=== PATIENT | female | born 1960 | race Caucasian/White ===

== ENCOUNTER 2018-02-04 16:09 | Emergency (ER) | payer BC ==
[2018-02-04 16:15] VITALS: PULSE 90; RESP 18
[2018-02-04] MEDS ORDERED: MORPHINE SULFATE 4MG/4ML SYRG IVP STA ×2 (16:36→17:30)
[2018-02-04] MEDS ORDERED: SODIUM CHLORIDE 0.9% 1,000 ML IV STA (16:36)
[2018-02-04] MEDS ORDERED: ONDANSETRON ODT 4 MG TAB PO STA (16:36)
--- NOTE | 2018-02-04 16:38 | ED ---
General Adult HPI - General Chief complaint: Fall Stated complaint: FALL 5FT BACKWARDS FROM LADDER Time Seen by Provider: 02/04/18 16:25 Source: patient, RN notes reviewed Mode of arrival: wheelchair Limitations: no limitations - History of Present Illness Initial comments: Patient 57-year-old female who was on a ladder approximately 5 feet in the area of most of balance falling backwards landing on her lower back and hips. She states she did not hit her head. Did not lose consciousness. Does admit to pain increased and lower back. States worse with certain movements. Patient denies any radicular pain. Denies any bowel or bladder incontinence retention. Patient denies any other injuries from a fall. States she has good range of motion of her legs but feels pain in the lower back when she moves them. Patient denies any headache. Denies any visual change. nausea due to the pain. Patient denies any other complaints at this time. Denies any neck pain, abdominal pain, chest pain, shortness of breath. - Related Data Home Medications Medication Instructions Recorded Confirmed Estrogens, Conjugated [Premarin] 0.3 mg PO HS 02/04/18 02/04/18 Rosuvastatin Calcium [Crestor] 5 mg PO HS 02/04/18 02/04/18 Previous Rx's Medication Instructions Recorded Hydrocodone/Acetaminophen [[place] 1 each PO Q6HR PRN #20 tab 02/04/18 5-325] Ibuprofen [Motrin] 600 mg PO Q6HR PRN #40 day 02/04/18 Ondansetron Odt [Zofran ODT] 4 mg PO Q8HR PRN #20 tab 02/04/18 Orphenadrine [Norflex] 100 mg PO Q12H #20 tablet.er 02/04/18 Allergies Allergy/AdvReac Type Severity Reaction Status Date / Time erythromycin base Allergy Rash/Hives Verified 02/04/18 16:30 Penicillins Allergy Unknown Verified 02/04/18 16:30 Childhood Review of Systems ROS Statement: Those systems with pertinent positive or pertinent negative responses have been documented in the HPI. ROS Other: All systems not noted in ROS Statement are negative. Past Medical History Past Medical History: Hyperlipidemia History of Any Multi-Drug Resistant Organisms: None Reported Past Surgical History: Tonsillectomy Additional Past Surgical History / Comment(s): Rotator cuff repair Past Psychological History: No Psychological Hx Reported Smoking Status: Never smoker Past Alcohol Use History: None Reported Past Drug Use History: None Reported General Exam - General Exam Comments Initial Comments: General: The patient is awake and alert, in no distress, and does not appear acutely ill. Eye: Pupils are equal, round and reactive to light, extra-ocular movements are intact. No nystagmus. There is normal conjunctiva bilaterally. No signs of icterus. Ears, nose, mouth and throat: There are moist mucous membranes and no oral lesions. Neck: The neck is supple, there is no tenderness or JVD. Cardiovascular: There is a regular rate and rhythm. No murmur, rub or gallop is appreciated. Respiratory: Lungs are clear to auscultation, respirations are non-labored, breath sounds are equal. No wheezes, stridor, rales, or rhonchi. Gastrointestinal: Soft, non-distended, non-tender abdomen without masses or organomegaly noted. There is no rebound or guarding present. No CVA tenderness. Musculoskeletal: Patient has full range motion of the upper extremities. Good range of motion lower extremities no specific bony tenderness on exam. No tenderness to the hips. Negative logroll maneuver. Patient has normal appearance of the cervical, thoracic, lumbar spine. No step-off or deformity. Patientspecific bony tenderness of the spinous processes. Strength 5/5. Sensation intact. Pulses equal bilaterally 2+. Neurological: A&O x 3. CN II-XII intact, There are no obvious motor or sensory deficits. Coordination appears grossly intact. Speech is normal. Skin: Skin is warm and dry and no rashes or lesions are noted. Psychiatric: Cooperative, appropriate mood & affect, normal judgment. Limitations: no limitations Course Vital Signs 02/04/18 16:13 Temperature 98.0 F Pulse Rate 90 Respiratory 18 Rate Blood Pressure 127/70 O2 Sat by Pulse 98 Oximetry Medical Decision Making - Medical Decision Making Case discussed in detail with attending physician Dr. Archibald. Patient reexamined at this time shows no signs of distress resting comfortably. Patient x-rays of the hips bilaterally show no acute fracture dislocation. Patient's x-ray of the lumbar spine does show a chief complaint body fracture L2. CT of the lumbar spine performed and shows acute compression fracture of L3 with approximately 35% loss of height. No significant fragment extending posteriorly. There is a 3 mm posterior position of the posterior superior aspect of L2 vertebral body into the spinal canal. There is developmentally adequate canal and no significant impingement on the thecal sac. The spinal canal is adequate. The facet joints are intact. SI joints are intact. No lumbar paraspinal mass. Small posterior disc bulge at L3-4, L4-5. There is small posterior disc herniation at L2-3 towards the left side. SI joints are intact as read by radiologist Dr. Toribio. Patient has no neural deficit. Patient. Range of motion of upper and lower extremities. Patient advised no bending or heavy lifting. Patient will be given prescription for TSLO back brace. Patient at this time doing well. Will be discharged home with pain medication. Otherwise close follow-up with orthopedics. Advised return if any symptoms increase worsen. Disposition Clinical Impression: Closed fracture of lumbar vertebral body Disposition: HOME SELF-CARE Condition: Good Instructions: Vertebral Compression Fracture (ED) Additional Instructions: Please follow-up with orthopedics over the next 1-2 days. Please use brace when up and moving around. Please do not do any bending or lifting at the waist. Please use pain medication as prescribed. Return to emergency room symptoms increase or worsen or for any other concerns. Prescriptions: Hydrocodone/Acetaminophen [[place] 5-325] 1 each PO Q6HR PRN #20 tab PRN Reason: Pain Ibuprofen [Motrin] 600 mg PO Q6HR PRN #40 day PRN Reason: Pain Ondansetron Odt [Zofran ODT] 4 mg PO Q8HR PRN #20 tab PRN Reason: Nausea Orphenadrine [Norflex] 100 mg PO Q12H #20 tablet.er Referrals: Esau Cortez Jr, DO [Primary Care Provider] - 1-2 days Satish Shaw DO [Doctor of Osteopathic Medicine] - 1-2 days Time of Disposition: 18:50
--- NOTE | 2018-02-04 17:35 | XR ---
EXAMINATION TYPE: XR lumbosacral spine min 4V DATE OF EXAM: 02/04/2018 COMPARISON: NONE HISTORY: Fell from a ladder. Pain. TECHNIQUE: 5 views FINDINGS: There is anterior wedging of L2 vertebral body with depression of the superior endplate of 35%. The posterior elements appear intact. Sacroiliac joints appear normal. IMPRESSION: Compression fracture of L2 appears acute.
--- NOTE | 2018-02-04 18:11 | CT ---
EXAMINATION TYPE: CT lumbar spine wo con DATE OF EXAM: 02/04/2018 5:51 PM COMPARISON: NONE HISTORY: Fall from ladder today, landed on back. CT DLP: 967 mGycm Automated exposure control for dose reduction was used. Unenhanced CT of the lumbar spine was performed. Bone and soft tissue window settings are submitted as well as coronal and sagittal reconstructions. The vertebra have fairly normal alignment. There is anterior wedging of the L2 vertebral body with co rtical buckling anteriorly consistent with an acute fracture. There is 35% loss of height. I see no s ignificant fragment extending posteriorly. There is 3 mm posterior position of the posterior superior aspect of the L2 vertebral body into the spinal canal. There is developmentally adequate canal and n o significant impingement on the thecal sac. The spinal canal is adequate. The facet joints are intac t. The sacroiliac joints are intact. There is no lumbar paraspinal mass. There are small posterior di sc bulges at L3-4 L4-5. There is small posterior disc herniation at L2-3 towards the left side. Sacro iliac joints are intact. IMPRESSION: Acute compression fracture of L2 vertebral body as above with only minimal fragment extension posteri gokul. No spinal stenosis.
--- NOTE | 2018-02-04 18:21 | XR ---
EXAMINATION TYPE: XR Hip Bilateral and AP pelvis DATE OF EXAM: 02/04/2018 COMPARISON: NONE HISTORY: Hip pain after falling TECHNIQUE: 5 views FINDINGS: The pelvic ring is intact. Proximal femurs and hip joints are intact. Hip joint spaces are fairly well-maintained. Sacroiliac joints appear normal. CONCLUSION: No acute abnormality of the pelvis and both hips. No fracture.
[2018-02-04] MEDS ORDERED: KETOROLAC 30 MG/ML 1 ML VIAL IVP STA (18:39)
[2018-02-04] MEDS ORDERED: ORPHENADRINE 30 MG/ML 2 ML VIAL IVP STA (18:39)
[2018-02-04 19:41] VITALS: BP 128/60; TEMP 98.2
== END 2018-02-04 19:41 | disposition home or self-care (01) ==
LOC: EC 16:09
DX: S32.039A Unspecified fracture of third lumbar vertebra, initial encounter for closed fracture (principal); S32.029A Unspecified fracture of second lumbar vertebra, initial encounter for closed fracture; M51.26 Other intervertebral disc displacement, lumbar region; E78.5 Hyperlipidemia, unspecified; Z79.899 Other long term (current) drug therapy; Z88.0 Allergy status to penicillin; Z88.1 Allergy status to other antibiotic agents; W11.XXXA Fall on and from ladder, initial encounter
CPT/HCPCS: 99284; 96374; 96375; 72110; 73521; 72131; J2360; J1885; J2270

== ENCOUNTER → 2018-11-03 | Outpatient (CLI) | payer BC ==
--- NOTE | 2018-11-03 11:24 | BD ---
EXAMINATION TYPE: Axial Bone Density DATE OF EXAM: 11/03/2018 COMPARISON: NONE CLINICAL HISTORY: 58 YR OLD FEMALE....ICD-10 CODE: M89.9 DISORDER OF BONE Height: 63.4 Weight: 131 FRAX RISK QUESTIONS: History of Fracture in Adulthood: YES RISK FACTORS HISTORY OF: Spine Fracture: YES, L-2 AND T-10 When: 2018 Active: RELATIVELY SO Diet low in dairy products/other sources of calcium: YES, LOW Postmenopausal woman: YES AT 53 YRS OLD Take estrogen and/or progesterone medications: YES, FOR 5 YRS NOW MEDICATIONS: Additional Medications: CALCIUM, STATINS FOR CHOLESTEROL, Additional History: NOTHING ADDITIONAL TO NOTE HERE EXAM MEASUREMENTS: Bone mineral densitometry was performed using the Socratic System. SPINE NOT SCANNED....FXs X2 Bone mineral density about the R hip (g/cm2): 0.909 Bone mineral density about the L hip (g/cm2): 0.878 T Score values are as follows: -----R Neck: -1.0 -----L Neck: -1.3 -----R Total: -0.8 -----L Total: -1.0 Bone mineral density FIRST DEXA AT [facility] Bone mineral density about the L Wrist (g/cm2): 0.578 T Score values are as follows: -----Dist. R+U: -2.0 -----Prox. R+U: -0.2 -----Radius total: -1.2 Bone mineral density FIRST DEXA AT [facility] FRAX%s: THERE IS A 12.5% CHANCE FOR A MAJOR OSTEOPOROTIC FX AND A 1.0% FOR HIP....PROBABILITY OF F X IN10 YRS TIME IMPRESSION: Osteopenia (T Score between -2.5 and -1) femoral neck level in the left hip.. There is slightly increased risk of fracture and the patient may be considered for treatment. Re-Screen 2-5 years. NOTE: T-SCORE=SD OF THE YOUNG ADULT MEAN.
--- NOTE | 2018-11-06 13:09 | MM ---
Reason for exam: screening (asymptomatic). Last mammogram was performed 19 years and 8 months ago. History: Patient is postmenopausal. Took hormonal contraceptives for 2 years. Taking estrogen for 5 years beginning at age 53. MG Screening Mammo w CAD Bilateral CC and MLO view(s) were taken. Prior study comparison: February 17, 1999, bilateral special view mammogram. The breast tissue is extremely dense which could obscure a lesion on mammography. No significant changes when compared with prior studies. ASSESSMENT: Benign, BI-RAD 2 RECOMMENDATION: Routine screening mammogram of both breasts in 1 year.
== END | disposition home or self-care (01) ==
LOC: RADMAMWWP 08:43
PROVIDERS: ATTEND Obstetrics & Gynecology
DX: Z12.31 Encounter for screening mammogram for malignant neoplasm of breast (principal); M85.88 Other specified disorders of bone density and structure, other site
CPT/HCPCS: 77067; 77080

== ENCOUNTER → 2020-01-11 | Outpatient (CLI) | payer BC ==
--- NOTE | 2020-01-11 09:34 | MM ---
Reason for exam: screening (asymptomatic). Last mammogram was performed 1 year and 2 months ago. History: Patient is postmenopausal. Took hormonal contraceptives for 19 years beginning at age 34. Took estrogen for 5 years beginning at age 53. Physical Findings: A clinical breast exam by your physician is recommended on an annual basis and results should be correlated with mammographic findings. MG 3D Screening Mammo W/Cad Bilateral CC and MLO view(s) were taken. Prior study comparison: November 03, 2018, bilateral MG screening mammo w CAD. February 17, 1999, bilateral special view mammogram. The breast tissue is heterogeneously dense. This may lower the sensitivity of mammography. Finding: There are round, grouped/clustered calcifications in the left breast. There is no discrete abnormality. ASSESSMENT: Benign, BI-RAD 2 RECOMMENDATION: Routine screening mammogram of both breasts in 1 year.
== END | disposition home or self-care (01) ==
LOC: RADMAMWWP 07:50
PROVIDERS: ATTEND Obstetrics & Gynecology
DX: Z12.31 Encounter for screening mammogram for malignant neoplasm of breast (principal)
CPT/HCPCS: 77063; 77067

== ENCOUNTER → 2020-07-25 | Outpatient (CLI) | payer BC ==
--- NOTE | 2020-07-25 08:44 | US ---
EXAMINATION TYPE: US gallbladder DATE OF EXAM: 07/25/2020 COMPARISON: NONE CLINICAL HISTORY: R10.11 RUQ pain. EXAM MEASUREMENTS: Liver Length: 13.1 cm Gallbladder Wall: 0.2 cm CBD: 0.4 cm Right Kidney: 10.5 x 4.0 x 4.3 cm Pancreas: Obscured by bowel gas, visualized portions wnl Liver: wnl Gallbladder: wnl Evidence for sonographic Mccoy's sign: No CBD: wnl Right Kidney: No hydronephrosis or masses seen IMPRESSION: No distinct abnormality appreciated.
== END | disposition home or self-care (01) ==
LOC: RADUSWWP 07:30
PROVIDERS: ATTEND Nurse Practitioner Women's Health
DX: R10.11 Right upper quadrant pain (principal); Z88.0 Allergy status to penicillin
CPT/HCPCS: 76705

== ENCOUNTER → 2020-07-31 | Outpatient (CLI) | payer BC ==
--- NOTE | 2020-07-31 13:04 | CT ---
EXAMINATION TYPE: CT abdomen w con DATE OF EXAM: 07/31/2020 COMPARISON: Ultrasound gallbladder 07/25/2020 HISTORY: Right sided upper Abdominal pain. CT DLP: 322.1 mGycm Automated exposure control for dose reduction was used. TECHNIQUE: Helical acquisition of images was performed from the lung bases through the top of iliac crest to include entire abdomen. CONTRAST: Performed with Oral Contrast and with IV Contrast, patient injected with 100 mL of Isovue 300. FINDINGS: There is a sizable lipoma along the right iliac bone laterally measuring 6.8 x 2.9 by great er than 4.6 cm. LUNG BASES: No significant abnormality is appreciated. Posterior diaphragmatic hernias containing fat . LIVER/GB: No significant abnormality is appreciated. PANCREAS: No significant abnormality is seen. SPLEEN: No significant abnormality is seen. ADRENALS: No significant abnormality is seen. KIDNEYS: No significant abnormality is seen. BOWEL: No significant abnormality is seen. LYMPH NODES: No significant abnormality is appreciated. OSSEOUS STRUCTURES: There is a compression deformity at L2, loss of height of superior endplate of a pproximately 40%, minimal retropulsion of the superior endplate. T10-T11 show probable hemangiomas. FREE AIR: No Free Air visible ASCITES: None visible. RETROPERITONEAL ADENOPATHY: No Retroperitoneal Adenopathy visible. OTHER: Oral contrast has not coursed entirely through the bowel. There is no evident obstruction. IMPRESSION: POSTERIOR DIAPHRAGMATIC HERNIAS. 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 Lumbar compression fra cture.
== END | disposition home or self-care (01) ==
LOC: RADCTMAIN 09:29
PROVIDERS: ATTEND Family Medicine
DX: K44.9 Diaphragmatic hernia without obstruction or gangrene (principal); M48.56XA Collapsed vertebra, not elsewhere classified, lumbar region, initial encounter for fracture; Z88.0 Allergy status to penicillin; Z88.1 Allergy status to other antibiotic agents
CPT/HCPCS: 74160; Q9967

== ENCOUNTER → 2021-01-28 | Outpatient (CLI) | payer BC ==
--- NOTE | 2021-01-28 10:14 | CT ---
EXAMINATION TYPE: CT chest wo con DATE OF EXAM: 01/28/2021 COMPARISON: None HISTORY: Left sided diaphragm hernia CT DLP: [address] of the chest was performed with lung and mediastinal window settings submitted. The la ck of contrast limits evaluation of the vascular, mediastinal and parenchymal structures including th e upper abdomen. LUNGS: The lungs are clear and free of infiltrate. No atelectasis. No pulmonary nodule or mass is de tected. No pleural effusion. No CT evidence of interstitial lung disease. MEDIASTINUM/ANABELLA: Thoracic aorta is of normal caliber with limited evaluation given lack of contrast . The heart is not enlarged. No evidence for mediastinal mass. No lymph nodes greater than 1cm. UPPER ABDOMEN: No significant abnormality is seen. OTHER: No diaphragmatic herniation appreciated. IMPRESSION: 1. No significant abnormality appreciated.
== END | disposition home or self-care (01) ==
LOC: RADCTMAIN 09:36
PROVIDERS: ATTEND Thoracic Surgery (Cardiothoracic Vascular Surgery)
DX: K45.8 Other specified abdominal hernia without obstruction or gangrene (principal); K44.9 Diaphragmatic hernia without obstruction or gangrene; Z88.0 Allergy status to penicillin; Z88.1 Allergy status to other antibiotic agents
CPT/HCPCS: 71250

== ENCOUNTER → 2021-09-05 | Outpatient (CLI) | payer BC ==
--- NOTE | 2021-09-08 18:56 | BD ---
EXAMINATION TYPE: Axial Bone Density DATE OF EXAM: 09/05/2021 COMPARISON: 11/03/2018 CLINICAL HISTORY: Postmenopausal screening Height: 63.5 IN Weight: 141 LBS FRAX RISK QUESTIONS: History of Fracture in Adulthood: L2 AND T10 AGE 58 RISK FACTORS HISTORY OF: Spine Fracture: L2 AGE 58 Active: YES Diet low in dairy products/other sources of calcium: YES Postmenopausal woman: AGE 49 Take estrogen and/or progesterone medications: NOT NOW How lon YEARS MEDICATIONS: Additional Medications: CALCIUM, VIT D, CRESTOR EXAM MEASUREMENTS: Bone mineral densitometry was performed using the Entrenarme System. Bone mineral density about the R hip (g/cm2): 0.861 Bone mineral density about the L hip (g/cm2): 0.795 T Score values are as follows: -----R Neck: -1.3 -----L Neck: -1.7 -----R Total: -0.9 -----L Total: -1.2 Bone mineral density has: Decreased -2.0% since study of: 11/03/2018 Bone mineral density about the L Wrist (g/cm2): 0.568 T Score values are as follows: -----Dist. R+U: -2.6 -----Prox. R+U: -1.4 -----Radius total: -1.8 Bone mineral density has: Decreased -12.7% since study of: 11/03/2018 IMPRESSION: Osteopenia (T Score between -2.5 and -1). There is slightly increased risk of fracture and the patient may be considered for treatment. Re-Screen 2-5 years. NOTE: T-SCORE=SD OF THE YOUNG ADULT MEAN.
== END | disposition home or self-care (01) ==
LOC: RADBDWWP 16:08
PROVIDERS: ATTEND Obstetrics & Gynecology
DX: Z12.31 Encounter for screening mammogram for malignant neoplasm of breast (principal); M85.80 Other specified disorders of bone density and structure, unspecified site
CPT/HCPCS: 77080

== ENCOUNTER → 2022-04-16 | Outpatient (CLI) | payer BC ==
--- NOTE | 2022-04-16 08:59 | US ---
EXAMINATION TYPE: US extremity nonvasc mass RT DATE OF EXAM: 04/16/2022 COMPARISON: CT CLINICAL HISTORY: M25.551 PAIN IN RT HIP. Pain in right hip per order. Patient states she feels no pa in. Patient states they found a lipoma in 2019 on MRI. Patient does not feel this area. She does not know exact location of area. Scanned the right hip and right flank. No abnormalities seen at this time by ultrasound. IMPRESSION: 1. Soft tissue ultrasound negative for suspicious abnormality.
== END | disposition home or self-care (01) ==
LOC: RADUSWWP 08:12
PROVIDERS: ATTEND Orthopaedic Surgery
DX: M25.551 Pain in right hip (principal); D17.79 Benign lipomatous neoplasm of other sites; E78.5 Hyperlipidemia, unspecified